=== PATIENT | male | born 1960 | race Caucasian/White ===

== ENCOUNTER 2017-08-04 08:40 | Inpatient (IN) | payer OTHER ==
[~2017-08-04] VITALS: Ht 188 cm; Wt 74.8 kg
--- NOTE | 2017-08-04 11:01 | NUR ---
RECEIVED TELEPHONE REPORT ON PATIENT FROM SONAM GOYAL IN ED. ALL QUESTIONS ANSWERED.
--- NOTE | 2017-08-04 11:34 | NUR ---
pt arrived to med surg room 123 at 1130 with Dione Blackwood RN and Juan GOYAL (nurse soft sugar supervisor). patient needed to urinate. standing next to bed attempting to void into urinal now. seems unable to void. chest tube drainage reading 0ml. some red blood in tubing from chest tube.
--- NOTE | 2017-08-04 13:55 | NUR ---
IN TO TAKE PT VS. PT RESTING COMFORTABLY WITH HIS EYES CLOSED ON BED. CALL LIGHT WITHIN REACH, NO REQUESTS AT THIS TIME.
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
--- NOTE | 2017-08-04 18:21 | NUR ---
NEW ED ADMIT. CHEST TUBE LEFT SIDE. RIB FX. 1L [address] SATURATING 100%. CHEST XRAY IN MORNING TO FOLLOW. BLOOD SUGAR 240 AT 1600. TELE [address] LR AT TKO. GLUCOPHAGE STARTED. DIABETIC. HASNT BEEN TAKING MEDS IN YEARS. CONTINUOUS PULSE OX. MORPHIN 3MG X1.
--- NOTE | 2017-08-04 19:18 | NUR ---
IN ROOM FOR REPORT, PT IS AWAKE IN BED WITH VISITOR IN THE ROOM. HE DENIES NEEDS AT THIS TIME. CALL LIGHT IS WITHIN REACH.
--- NOTE | 2017-08-04 22:25 | NUR ---
IN ROOM TO ASSESS PT AND GIVE EVENING MEDICATIONS. PT REPORTS PAIN WITH COUGHING AND MOVEMENT OF LEFT ARM. PERCOCET GIVEN. PT DENIES FURTHER NEEDS AT THIS TIME.
--- NOTE | 2017-08-05 00:50 | NUR ---
PT IS RESTING WITH EYES CLOSED, RESPIRATIONS ARE EVEN AND NONLABORED. CALL LIGHT IS WITHIN REACH.
--- NOTE | 2017-08-05 02:45 | NUR ---
PT IS RESTING WITH EYES CLOSED, RESPIRATIONS ARE EVEN AND NONLABORED. CALL LIGHT IS WITHIN REACH.
--- NOTE | 2017-08-05 05:44 | NUR ---
PT IS RESTING WITH EYES CLOSED, RESPIRATIONS ARE EVEN AND NONLABORED. CALL LIGHT IS WITHIN REACH.
--- NOTE | 2017-08-05 07:49 | NUR ---
BEDSIDE REPORT RECEIVED FROM SYLVIA GOYAL. PATIENT SITTING UP IN BED. 7ML OF DRAINAGE OVERNIGHT FROM CHEST TUBE. TOTAL OF 22ML OUT SO FAR.
--- NOTE | 2017-08-05 07:53 | NUR ---
PATIENT SITTING UP IN BED WATCHING TV. FRESH ICE WATER. CALL LIGHT WITHIN REACH. NO OTHER NEEDS AT THIS TIME.
--- NOTE | 2017-08-05 09:53 | NUR ---
TELEMETRY D/Cd PER MD. D/Cd IVF PER MD. TRANSFERRED PATIENT SBA TO RECLINER. TOLERATED WELL. CONTINUOUS PULSE OX STILL IN PLACE. 1L [address] WELL. LIKELY REMOVE CHEST TUBE TOMORROW BY DR CHERRY WHO WILL BE TAKING OVER THIS AFTERNOON.
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
--- NOTE | 2017-08-05 12:28 | NUR ---
PT SITTING UP IN RECLINER ON CELL PHONE. INSULIN 4 UNITS GIVEN FOR GLUCOSE OF 287. EATING LUNCH
--- NOTE | 2017-08-05 14:00 | NUR ---
PT SITTING IN CHAIR, MUCH MORE ALERT AND ORIENTED TODAY. PT STATED HE FEELS MUCH BETTER. PT STATED THAT HE HOPES THE THORAX TUBE IS REMOVED TOMORROW. PT DID SEEM TO ENJOY MY COMPANY. EXTENDED A BLESSING, WILL FOLLOW NEEDED
--- NOTE | 2017-08-05 14:05 | NUR ---
PT SITTING UP IN RECLINER. 9ML DRAINED INTO CHEST TUBE CONTAINER SO FAR THIS SHIFT. 3/10 PAIN IN LEFT RIBS. SMALL AMOUNT OF SEROSANQUINOUS DRAINAGE NOTED IN TUBING FROM CHEST TUBE. STITCHES INTACT. DRESSING INTACT. 1L [address]
--- NOTE | 2017-08-05 18:00 | NUR ---
SBA. SALINE LOCKED. TELE DCd. CHEST TUBE DRAINING SANGUINOUS FLUID. ACCUCHECKS ACHS. SLIDING SCALE INSULIN. UP IN RECLINER MOST OF DAY. NO PAIN MEDS GIVEN. PAIN 06/21 TODAY. JO ANN TO REMOVE CHEST TUBE TOMORROW LIKELY.
--- NOTE | 2017-08-05 18:27 | NUR ---
PATIENT SITTING UP IN CHAIR. PATIENT HAS VISITORS IN ROOM. CALL LIGHT WITHIN REACH. NO OTHER NEEDS AT THIS TIME. SORTING AND FOLDING SUPERVISOR STATES SHE GOT PATIENT COFFEE.
--- NOTE | 2017-08-05 19:30 | NUR ---
IN ROOM FOR REPORT, PT IS AWAKE SITTING IN CHAIR. HE DENIES NEEDS AT THIS TIME. CALL LIGHT IS WITHIN REACH.
--- NOTE | 2017-08-05 21:05 | NUR ---
IN ROOM TO ASSESS PT, CHEST TUBE IS STILL DRAINING SMALL AMOUNTS OF SEROSANGUINOUS FLUID. PT CONTINUES TO HAVE DISCOMFORT AND PERCOCET WAS GIVEN. DISCUSSED TAKING A STOOL SOFTENER WITH PT BUT HE DOES NOT WANT TO TAKE ONE TONIGHT, HE WOULD RATHER START IN THE MORNING. PT EXPRESSED FRUSTRATION WITH HAVING THE NEED TO GO EARLIER IN THE DAY BUT STAFF TOOK TOO LONG TO GET TO HIS ROOM AND HE NO LONGER FELT THE NEED TO HAVE A BM. APPOLOGIZED TO THE PT AND ASSURED HIM IF HE FELT THE NEED TO GO TONIGHT WE WOULD GET THERE QUENTIN. PT HAS FRESH WATER AT BEDSIDE AND DENIES FURTHER NEEDS. CALL LIGHT IS WITHIN REACH.
--- NOTE | 2017-08-05 22:03 | NUR ---
PT IS RESTING WITH EYES CLOSED, RESPIRATIONS ARE EVEN AND NONLABORED. CALL LIGHT IS WITHIN REACH.
--- NOTE | 2017-08-05 23:04 | NUR ---
PT IS RESTING WITH EYES CLOSED, RESPIRATIONS ARE EVEN AND NONLABORED ON 1 LNC.
--- NOTE | 2017-08-06 01:03 | NUR ---
PT IS RESTING WITH EYES CLOSED, RESPIRATIONS ARE EVEN AND NONLABORED.
--- NOTE | 2017-08-06 03:12 | NUR ---
IN ROOM TO ASSESS PT, CHEST TUBE IS STILL DRAINING VERY LITTLE. PT HAS NO COMPLAINTS OF PAIN UNLESS MOVING. HE IS ON 1 LNC AND AT 99% O2 SAT, SCD'S ARE IN PLACE. AND CALL LIGHT IS WITHIN REACH.
--- NOTE | 2017-08-06 04:43 | NUR ---
PT IS A SBA AND HAS URINAL AT THE BEDSIDE. HIS IVS ARE SL AND FLUSH WELL. HE IS ON 1 LNC AND O2 SAT IS IN THE UPPER 90'S. STOOL SOFTENER WAS ADDED TO EMAR TO START THIS AM PT DID NOT WANT TO START AT NIGHT. HE IS TOLERATING AN ADA DIET, BS WAS 262 AT BEDTIME. A REPEAT C-XRAY IS SCHEDULED FOR 0800 THIS MORNING. CHEST TUBE DRAINED VERY LITTLE THROUGH THE NIGHT.
--- NOTE | 2017-08-06 05:05 | NUR ---
PT IS RESTING WITH EYES CLOSED, RESPIRATIONS ARE EVEN AND NONLABORED.
--- NOTE | 2017-08-06 06:40 | NUR ---
PT IS AWAKE IN BED. HE STATES HIS PAIN IS 3/10 BUT WOULD LIKE TO HOLD OFF ON TAKING PERCOCET. FRESH WATER IS AT BEDSIDE AND PT DENIES FURTHER NEEDS.
--- NOTE | 2017-08-06 07:50 | NUR ---
THIS MINERAL SURVEYOR AND STUDENT NURSE IN ROOM. PATIENT STATES PAIN LEVEL IS A 1 OUT OF 10, BUT WHEN HE COUGHS IT HURTS MORE. FRESH ICE WATER. WASHCLOTH FOR FACE. CALL LIGHT WITHIN REACH. NO OTHER NEEDS AT THIS TIME.
--- NOTE | 2017-08-06 08:55 | NUR ---
PT SITTING UP IN BED AWAKE, ALERT AND ORIENTED. PT DENIES PAIN AT REST, PAIN AT CHEST TUBE INSERTION SITE WITH DEEP BREATHS AND COUGHING. PT HAVING MODERATE AMOUNT OF CLEAR/WHITE SPUTUM. BOTH IV SITES FLUSHING WELL, DRESSINGS CDI. CHEST TUBE SITE WNL, DRESSING INTACT, SMALL AMOUNT OF OLD DRIED BLOOD NOTED, SUTUTES VISIBLE, CHEST TUBE FUNCTIONING WELL, SCANT AMOUNT OF SEROSANGINOUS DRAINAGE NOTED. CMS INTACT. RESP UNLABORED, RR 18, SATTING 99% ON 1L NC. NO CREPITUS NOTED. ATES 100% OF BREAKFAST, MELQUIADES WELL. CALL LIGHT WITHIN REACH. SCD'S ON.
--- NOTE | 2017-08-06 10:29 | NUR ---
STUDENT NURSE IN ROOM. STUDENT NURSE STATES THAT PATIENTS PAIN LEVEL GOES UP TO AN 8 OUT OF 10 WHEN COUGHING.
--- NOTE | 2017-08-06 10:54 | NUR ---
PT SITTING UP IN BED WORKING ON I.S. SATTING 96% ON 1LNC. NO NEW DRAINAGE FROM CHEST TUBE. DENIES NEEDS OR CONCERNS AT THIS TIME. CALL LIGHT WITHIN REACH.
--- NOTE | 2017-08-06 12:29 | NUR ---
THIS REFRACTORY REPAIRER AND RN JAZZY TRANSFERRED PATIENT FROM BED TO THE CHAIR. PATIENT SITTING UP IN THE CHAIR EATING LUNCH. CALL LIGHT WITHIN REACH. NO OTHER NEEDS AT THIS TIME.
--- NOTE | 2017-08-06 16:15 | NUR ---
PT SBA TO BED FROM CHAIR. MEDICATED WITH 1 TAB PERCOCET FOR C/O PAIN AT CHEST TUBE INSERTION SITE. CALL LIGHT WITHIN REACH. SCD'S ON. SATTING 96% ON 1LNC.
--- NOTE | 2017-08-06 16:30 | NUR ---
PATIENT SITTING UP IN BED WATCHING TV. CALL LIGHT WITHIN REACH. NO OTHER NEEDS AT THIS TIME.
[2017-08-06] MEDS ORDERED: METFORMIN HCL500 MG PO (16:31)
--- NOTE | 2017-08-06 17:03 | NUR ---
Medications reconciled. Patient takes no medications. He should by taking metformin but cannot afford it and does not have a PCP. He was given RX value list from [facility] (~$10 for 90 day supply). Would like to see if hospitalist could write RX for 90 day supply of metformin, should he be discharged on this medication
--- NOTE | 2017-08-06 18:14 | NUR ---
PATIENT SITTING UP IN BED WATCHING TV AND EATING BREAKFAST. CALL LIGHT WITHIN REACH. NO OTHER NEEDS AT THIS TIME.
--- NOTE | 2017-08-06 21:55 | NUR ---
PT RESTING IN BED ALERT AND ORIENTED. HE REPORTS HE HAS NO PAIN AT THIS TIME. CHEST TUBE DRESSING INTACT. CHEST TUBE DRAINAGE DEVICE ASSESSMENT WNL, SUCTION TURNED OFF PER MD ORDER. LUNGS SOUNDS CLEAR. NO CONCERNS AT THIS TIME
--- NOTE | 2017-08-07 03:13 | NUR ---
PT RESTING QUIELTY IN BED EYES CLOSED RR EVEN AT 20 BPM NO DISTRES SNOTED OXYGEN SATURATION 97% ON 1L N.C. PT APPEARS TO BE SLEEPING AT THIS TIME
--- NOTE | 2017-08-07 04:55 | NUR ---
PT HAS SLEPT WELL OVER SHIFT. HE HAS REPORTED NO PAIN OR NAUSEA. STANDBY ASSIST TO BATHROOM, CHEST TUBE OFF SUCTION PER MD ORDER. LUNG SOUNDS CLEAR. DRESSING INTACT. PT 97% ON 1L OXYGEN. GOOD APPETITE. VOIDING QUANTITY SUFFICIENT. COOPERATIV WITH CARE PLAN.
--- NOTE | 2017-08-07 07:51 | NUR ---
HANDOFF REPORT RECEIVED FROM ADMITTED ATTORNEYS RN. PT ON BEDSIDE COMMODE. PT DENIES OTHER NEEDS AT THIS TIME.
--- NOTE | 2017-08-07 08:15 | NUR ---
PT RESTING IN BED. PT ON 1L NC, LUNG SOUNDS CLEAR, O2 SATS 100%. PT WITH CHEST TUBE TO LEFT SIDE, WIHTOUT CREPITUS, TIDALING PRESENT, WIHTOUT SIGNS OF LEAK, TO WATER SEAL. PT DENIES NAUSEA, TOLERATING ADA DIET, BLOOD GLUCOSE 209, GIVEN 2 UNITS OF SS NOVOLOG. PT WITH BM TODAY, BOWEL TONES ACTIVE. PT ASSISTED TO CHAIR FOR BREAKFATS. WITHOUT EDEMA, PULSES PALPABLE. PT RATIGN PAIN 4/10, STATES TOLERABLE, DENIES NEED FOR PAIN MEDICATION. PT DENIES OTHER NEEDS AT THIS TIME.
--- NOTE | 2017-08-07 09:50 | NUR ---
PT IS SITTING UP IN CHAIR WITH CALL LIGHT IN REACH. PT ASKED FOR COFFEE
--- NOTE | 2017-08-07 10:45 | NUR ---
PT ASSISTED TO WALK IN GRAY. DENIES SOB WITH ACTIVITY. COMPLAINT OF PAIN AT CHEST TUBE SITE, RATING PAIN 7/10, GIVEN 1 TAB PERCOCET. PT SITTING IN CHAIR. CHEST TUBE WITH 5 ML SEROSANGUINOUS DRAINAGE. PT DENIES OTHER NEEDS AT THIS TIME.
--- NOTE | 2017-08-07 11:00 | NUR ---
PT HYPOTENSIVE, DENIES DIZZINESS. MD NOTIFIED, NO NEW ORDERS.
--- NOTE | 2017-08-07 13:43 | NUR ---
PT SITTING IN CHAIR, LOOKING AT PHONE. HE IS ALERT AND ORIENTED. PT LOOKING AT HIS PHONE, MENTIONED THAT HE WAS HOPING TO HAVE TUBE OUT TODAY, AND SEEMS SOMEWHAT DISCOURAGED THAT IT WILL BE IN LONGER. "BUT IF IT NEEDS TO IT NEEDS TO", IS PT'S ATTITUDE REGARDING THE DRAIN TUBE REMAINING. EXTENDED A BLESSING, WILL FOLLOW NEEDED
--- NOTE | 2017-08-07 14:45 | NUR ---
PT SITTING IN CHAIR. PT DENIES PAIN. PT ON 1L NC, O2 SATS 98%, DENIES SOB. PT WITH CHEST TUBE, LUNG SOUNDS CLEAR, WITHOUT CREPITUS, INSERTION SITE WITHOUT REDNESS, WITHOUT LEAK. PT WITHOUT EDEMA, CMS INTACT. PT BOWEL TONES ACTIVE, DENIES NAUSEA. DISCUSSED PLAN TO MOVE PT TO NEW ROOM. PT DENIES OTHER NEEDS AT THIS TIME.
--- NOTE | 2017-08-07 15:02 | NUR ---
PT IS SITTING UP IN CHAIR WITH CALL LIGHT IN REACH. PT ASKED FOR URINAL TO BE EMPTIED.
--- NOTE | 2017-08-07 15:50 | NUR ---
PT WALKED IN GRAY WITH SBA. PT MOVED TO ROOM 115, BELONGINGS WITH PT. PT NOW RESTING IN BED. PT DENIES OTHER NEEDS AT THIS TIME.
--- NOTE | 2017-08-07 17:25 | NUR ---
PT RESTING IN BED. PT COMPLAINT OF PAIN TO CHEST TUBE INSERTION SITE, DENIES SOB, 02 SATS 100% ON 1L NC. CHEST TUBE WATER SEAL WITHOUT TIDALING RAISED TO MAX LEVEL. PT WITOUT CREPITUS. MMA FIGHTER ASKED TO EVALUATE TUBE. COLLECTION DEVICE CHANGED TO NEW SYSTEM, TIDALING PRESENT, WITHOUT SIGNS OF LEAK. PT BLOOD GLUCOSE 263, 3 UNITS SS NOVOLOG GIVEN. PT SITTING IN BED EATING DINNER. PT DENIES OTHER NEEDS AT THIS TIME. PLAN TO BATH AT SINK AFTER DINNER.
--- NOTE | 2017-08-07 18:13 | NUR ---
PT ASSITED INTO BATHROOM TO WASH UP AT SINK. PROVIDED WITH ELECTRIC RAZOR TO SHAVE. REMAINED IN ROOM WHILE PT BATHING.
--- NOTE | 2017-08-07 18:13 | NUR ---
PT WALKED IN GRAY X2, TOLERASTING WELL. CHEST TUBE REMAINED TO WATER SEAL, VAPRO LOCKED THIS AFTERNOON, CHANGED TO NEW COLLECTION DEVICE, NOW WORKING WELL. PT ON 1L NC, LUNG SOUNDS CLEAR, CONTINUOUS PULSE OX. PT TOLERATING ADA DIET, BLOOD GLUCOE AT DINER 263, GIVEN 3 UNITS SS INSULIN. PT WITH BM TODAY, BOWEL TONES ACTIVE. SALINE LOCKED. VOIDING QS.
--- NOTE | 2017-08-07 20:09 | NUR ---
RECIEVED BEDSIDE REPORT FROM DAY SHIFT RN. PT A/O IN BED. SITTING UP. IV IN RIGHT AC IS SL. WATER SEAL CHEST TUBE IN PLACE. PT IS ON CONT PULSE OX. HR 89, SATURATION 98% ON 1L O2. PT REPORTS NO NEEDS AT THIS TIME. CALL LIGHT WITHIN REACH.
--- NOTE | 2017-08-07 20:20 | NUR ---
Charge Nurse Rounding Note:. Pt awake, watching tv, no c/o pain. L chest tube intact, to gravity, scant serous sanguineous drainage present. No c/o sob , no requests,
--- NOTE | 2017-08-07 22:20 | NUR ---
ASSESSMENT COMPLETED. PT A/O IN BED. CHEST TUBE DRESSING INTACT. NO LEAKS. CHEST TUBE DRAINAGE SYSTEM WITH GRAVITY. PT REPORTED PAIN OF 6/10 IN LEFT SIDE WHEN BREATHING AND MOVING. SATURATIONS ARE 99 ON 1L NC. HEART RATE WNL. NO ABNORMAL SOUNDS HEARD, ALTHOUGH HEART SOUNDS DISTANT. PT LUNGS ARE DIM IN UPPER AND LOWER LUNG DOWNS. PT DOES NOT C/O SOB BUT, IS BREATHING SHALLOW D/T PAIN. RADIAL AND DORSAL PULSES +2. CAP REFILL <3 SEC ALL FOUR EXTREMITIES. BLOOD SUGAR WAS 181. 2 UNITS INSULIN GIVEN. PT ON CONT PULSE OX AT THIS TIME. CALL LIGHT WITHIN REACH.
--- NOTE | 2017-08-08 00:10 | NUR ---
PT APPEARS TO BE SLEEPING. RESPIRATIONS EQUAL AND UNLABORED. CHEST TUBE INTACT. HEART RATE AND SATURATION WNL. CALL LIGHT WTIHIN REACH.
--- NOTE | 2017-08-08 02:20 | NUR ---
PT APPEARS TO BE SLEEPING. DATURATION AT 96% HEART RATE AT 69. RESPIRATIONS ARE EQUAL AND NONLABORED. CHECT TUBE DRAIN SEALED WITH NO LEAKS. CALL LIGHT WITHIN REACH.
--- NOTE | 2017-08-08 04:42 | NUR ---
PT A/O IN BED. REQUESTED COFFEE. PT REPORTS NO PAIN AT THIS TIME. RESPIRATIONS ARE EQUAL AND NONLABORED. HR AND O2 SATURATIONS ARE WNL. CHEST TUBE WATER SEALED WITH NO LEAKS. DRESSING IS C/D/I. CONT PULSE OX IN PLACE. ASSESSMENT COMPLETED. NO CHANGES FROM BEGINING OF SHIFT. CALL LIGHT WITHIN REACH.
--- NOTE | 2017-08-08 04:42 | NUR ---
PT A/O AWAKE IN BE
--- NOTE | 2017-08-08 05:27 | NUR ---
PT SLEPT THROUGHOUT THE NIGHT. X-RAY THIS AM. PT IS ON CONT PULSE OX. SATURATIONS AND HR WNL THIS SHIFT. 2L NC IN PLACE. FIELD START IN RAC. PERCOCET FOR PAIN.
--- NOTE | 2017-08-08 06:22 | NUR ---
VITALS AND I&OS DONE AND CHARTED. FRESH ICE WATER GIVEN. GARBAGES EMPTIED. ROOM AND BATHROOM CLEANED UP. BEDSIDE TABLE AND CALL LIGHT WITHIN REACH. PT NEEDS NOTHING ELSE AT THIS TIME.
--- NOTE | 2017-08-08 07:10 | NUR ---
BEDSIDE HANDOFF REPORT RECEIVED FROM DISTRICT WIRE CHIEF RN. PT RESTING IN BED. PT ON 1L NC, O2 SATS 98%. CHEST TUBE TO LEFT CHEST, TIDALING PRESENT WITHOUT LEAK. PT DENIES OTHER NEEDS AT THIS TIME.
--- NOTE | 2017-08-08 08:17 | NUR ---
PT RESTING IN BED EATING BREAKFAST. PT BLOOD GLUOCE 163, GIVEN 1 UNIT SS INSULIN. PT DENIES PAIN. PT ON 1L NC, O2 SATS 98%, OCCASIONAL COUGH, LUNG SOUNDS CLEAR. CHEST TUBE TO LEFT SIDE, TIDALING PRESENT, WITHOUT AIR LEAK, WITHOUT CREPITUS. PT BOWEL TONES ACTIVE, DENIES NAUSEA, TOLERATING ADA DIET. PT WIHTOUT EDEMA, CMS INTACT. SALINE LOCKED, PATENT. PT DENIES OTHER NEEDS AT THIS TIME.
--- NOTE | 2017-08-08 10:20 | NUR ---
PT RESTING IN BED. FRIENDS AT BEDSIDE. PT DENIES OTHER NEEDS AT THIS TIME.
--- NOTE | 2017-08-08 12:54 | NUR ---
PET THERAPY DOG ELZA IN TO VISIT PT. SEEMED TO REALLY ENJOY. BEGAN TO TELL MEMORIES OF A BLACK LAB HE HAD A CHILD-FOND MEMORIES. VERY POSITIVE TIME, PT MENTIONED HE HOPES TO GET TUBE OUT TODAY AND BE DC'D. EXTENDED A BLESSING, PT SEEMS VERY GRATEFUL. WILL FOLLOW NEEDED
--- NOTE | 2017-08-08 13:24 | NUR ---
PT RESTING IN BED. PT DENIES NEEDS AT THIS TIME.
--- NOTE | 2017-08-08 14:30 | NUR ---
PT RESTING IN CHAIR. PT DENIES PAIN. PT ON ROOM AIR, LUNG SOUNDS CLEAR, DENIES SOB. CHEST TUBE REMOVED BY DR. CHERRY. PT INDEPENDENT IN ROOM. CHEST XRAY COMPLETED. NO ACUTE CHANGES. PT DENIES OTHER NEEDS AT THIS TIME.
[2017-08-08] MEDS ORDERED: PERCOCET 10-321 EACH PO (17:33)
--- NOTE | 2017-08-08 17:52 | NUR ---
DR. CHERRY CALLED AND GAVE VERBAL ORDER TO DISCHARGE PT. PT NOTIFIED. PT CALLING TO ARRANGE RIDE. PT BLOOD GLUCOSE 235, 3 UNITS SS INSULIN GIVEN. PT DENIES OTHER NEEDS AT THIS TIME.
== END 2017-08-08 18:30 | disposition home or self-care (01) | DRG 200 ==
LOC: ED 08:40 → MS 10:52 → CCU 10:52 → MS 08-07 15:31
PROVIDERS: ADMIT Surgery
PROC: 0W9B30Z Drainage of Left Pleural Cavity with Drainage Device, Percutaneous Approach (ICD-10-PCS; principal; 2017-08-04)
DX: S27.0XXA Traumatic pneumothorax, initial encounter (principal); S22.42XA Multiple fractures of ribs, left side, initial encounter for closed fracture; V78.0XXA Driver of bus injured in noncollision transport accident in nontraffic accident, initial encounter; Y92.488 Other paved roadways as the place of occurrence of the external cause; Y99.8 Other external cause status; E11.9 Type 2 diabetes mellitus without complications; Z79.84 Long term (current) use of oral hypoglycemic drugs
CPT/HCPCS: 32551; 36415; 71045; 71046; 71260; 80048; 80053; 82150; 85025; 90471; 90715; 94762; 96374; 96375; 99285; J0690; J2270; J3010; J7030; J7120; Q9967